=== PATIENT | male | born 1970 | race Caucasian/White ===

== ENCOUNTER 2024-09-11 08:15 | Day surgery (SDC) | payer OTHER ==
[~2024-09-11] VITALS: Ht 165.1 cm; Wt 80.0 kg
[~2024-09-11 08:15] MED LIST: IBLOOD GLUCOSE TEST STRIP 1 EA TEST VI PRN; LACTATED RINGER'S 1,000 ML IV SCH; LIDOCAINE HCL 1% 5 ML SDV INJ ONE; OMEPRAZOLE20 MG PO; VENTOLIN HFA18 GM INH
[2024-09-11 08:27] VITALS: BP 121/82
[2024-09-11] MEDS ORDERED: KETAMINE in NS 50 MG/5 ML SYR ONE (11:02)
[2024-09-11] MEDS ORDERED: LIDOCAINE HCL 2% 5 ML SDV ONE ×2 (11:02→11:03)
[2024-09-11] MEDS ORDERED: LIDOCAINE 1% W/ EPI 1:200,000 30 ML SDV ONE (11:41)
--- NOTE | 2024-09-11 12:16 | NUR ---
09/11/24 Manuel6 Nazia Montgomery LE 1203: PT ARRIVES TO PACU. REPORT RECEIVED FROM DIRECTOR OF PERSONNEL AND TRIMMER AND BORER MACHINE OPERATOR. PT NON REACTIVE TO ANY STIMULI. LE 1215: PT CONTINUES TO BE NON RESPONSIVE TO VERBAL OR TACTILE STIMULI.
[2024-09-11 12:54] VITALS: BP 114/90
--- NOTE | 2024-09-13 09:23 | PATH ---
[facility] [address] [facility] [place], [place] [address] Signed SPECIMEN(S): A PROXIMAL ASCENDING COLON POLYP SPECIMEN(S): B COLON POLYP AT 20 CM SPECIMEN(S): C COLON POLYP AT 15 CM SPECIMEN(S): D ANTRUM/PYLORUS BIOPSY SPECIMEN(S): E GE JUNCTION SPECIMEN SOURCE: A. PROXIMAL ASCENDING COLON POLYP B. COLON POLYP AT 20 CM C. COLON POLYP AT 15 CM D. ANTRUM/PYLORUS BIOPSY E. GE JUNCTION CLINICAL HISTORY: GERD and screening. Post-diverticulosis/polyp x 3/GERD A-C) polyp, D/E) biopsy FINAL PATHOLOGIC DIAGNOSIS: A. Proximal ascending colon polyp: - Tubular adenoma B. Colon polyp at 20 cm: - Benign colonic mucosa with benign lymphoid aggregate - Negative for definitive dysplastic or hyperplastic changes C. Colon polyp at 15 cm: - Hyperplastic polyp D. Antrum/pylorus biopsy: - Benign gastric mucosa with mildly increased stromal fibrosis; suggesting possible previous ulcer - Negative for active acute inflammation, intestinal metaplasia, dysplasia, or Helicobacter organisms by routine HE stain. E. GE junction: - Benign squamous and glandular mucosa - Negative for specialized intestinal metaplasia, dysplasia, or eosinophilia BB MICROSCOPIC EXAMINATION: Histologic sections of all submitted blocks are examined by light microscopy. These findings, together with the gross examination, support the pathologic diagnosis. Histologic sections of all submitted blocks are examined by light microscopy. These findings, together with the gross examination, support the pathologic PATIENT NAME: MARTYJOSE JOANN PATHOLOGY DATE OF : 68 REPORT #: [id number] PHYSICIAN: SRIKANTH MARTINES PCP: TANNER VILLASEÑOR MD REPORT IS CONFIDENTIAL AND NOT TO BE RELEASED WITHOUT AUTHORIZATION [facility] [address] [place], [place] [address] Signed diagnosis. GROSS DESCRIPTION: A. The specimen, labeled and designated "Marty, proximal ascending colon polyp," is received in formalin and consists of two costello soft tissue fragments, ranging from 0.3-0.5 cm. Entirely submitted in (A1). B. The specimen, labeled and designated "Marty, colon polyp at 20 cm," is received in formalin and consists of one costello soft tissue fragment, 0.4 cm. Entirely submitted in (B1). C. The specimen, labeled and designated "Marty, colon polyp at 15 cm," is received in formalin and consists of two costello soft tissue fragments, ranging from 0.2-0.3 cm. Entirely submitted in (C1). D. The specimen, labeled and designated "Marty, antrum/pylorus biopsy," is received in formalin and consists of two costello soft tissue fragments, ranging from 0.3-0.4 cm. Entirely submitted in (D1). E. The specimen, labeled and designated "Marty, GE junction," is received in formalin and consists of three costello soft tissue fragments, ranging from 0.3-0.5 cm. Entirely submitted in (E1). AB (under the direct supervision of a pathologist) The Gross Description was prepared using a voice recognition system. The report was reviewed for accuracy; however, sound-alike word errors, addition and/or deletions may occur. If there is any question about this report, please contact Client Services. ADDITIONAL NOTES: Immunohistochemical and/or in situ hybridization studies if performed in this case included appropriate positive controls that reacted as expected. This test was developed and its performance characteristics determined by [facility]. It has not been cleared or approved by the U.S. Food and Drug Administration. The FDA has determined that such clearance or approval is not necessary. This test is used for clinical purposes. It should not be regarded as investigational or for research. [facility] is certified under the Clinical Laboratory Improvement Amendments of 1988 (CLIA) as qualified to perform high complexity clinical laboratory testing. PERFORMING LABORATORY: Technical component was performed by [facility], [address] [place] [id number] (CLIA# [id number]). Professional interpretation was PATIENT NAME: JOSE FERGUSONN PATHOLOGY DATE OF : 68 REPORT #: [id number] PHYSICIAN: SRIKANTH PATHOLOGY PCP: TANNER VILLASEÑOR MD REPORT IS CONFIDENTIAL AND NOT TO BE RELEASED WITHOUT AUTHORIZATION [facility] [address] [place], [place] [address] Signed performed by [facility] - [address] [place] [id number] (CLIA#: [id number]). Diagnostician: Eliezer Leo MD Pathologist Electronically Signed 09/13/2024 Copies: ~ PATIENT NAME: JOSE FERGUSON PATHOLOGY DATE OF : 68 REPORT #: [id number] PHYSICIAN: SRIKANTH PATHOLOGY PCP: TANNER VILLASEÑOR MD REPORT IS CONFIDENTIAL AND NOT TO BE RELEASED WITHOUT AUTHORIZATION
== END 2024-09-11 13:04 | disposition home or self-care (01) ==
LOC: DS 08:15 → OPS 08:15 → DS 10:45 → OPS 10:45
PROVIDERS: ATTEND Surgery
PROC: 0DBP8ZX Excision of Rectum, Via Natural or Artificial Opening Endoscopic, Diagnostic (ICD-10-PCS; 2024-09-11)
PROC: 0DB48ZX Excision of Esophagogastric Junction, Via Natural or Artificial Opening Endoscopic, Diagnostic (ICD-10-PCS; principal; 2024-09-11 09:25)
PROC: 0DBF8ZX Excision of Right Large Intestine, Via Natural or Artificial Opening Endoscopic, Diagnostic (ICD-10-PCS; 2024-09-11 09:25)
DX: Z12.11 Encounter for screening for malignant neoplasm of colon (principal); D12.2 Benign neoplasm of ascending colon; K63.5 Polyp of colon; K21.9 Gastro-esophageal reflux disease without esophagitis; K57.30 Diverticulosis of large intestine without perforation or abscess without bleeding; K64.1 Second degree hemorrhoids; J45.909 Unspecified asthma, uncomplicated; I10 Essential (primary) hypertension; E78.00 Pure hypercholesterolemia, unspecified; Z79.899 Other long term (current) drug therapy
CPT/HCPCS: 00813; J2003; J2704; J3490; J7121